=== PATIENT | female | born 1990 | race African-American/Black ===

== ENCOUNTER 2021-04-02 15:28 | Emergency (ER) | payer OTHER ==
[2021-04-02 15:59] VITALS: BP 132/83; PULSE 72; TEMP 97.3; BMI 23.3
[2021-04-02] MEDS ORDERED: diazePAM 5 MG TABLET PO ONE (16:19)
[2021-04-02] MEDS ORDERED: KETOROLAC TROMETHAMINE 60 MG/2 ML VIAL IM ONE (16:19)
[2021-04-02] MEDS ORDERED: KETOROLAC TROMETHAMINE 60 MG/2 ML VIAL ONE (16:23)
[2021-04-02] MEDS ORDERED: IBUPROFEN 400 MG TABLET (FP) PO ONE (16:32)
== END 2021-04-02 18:12 | disposition home or self-care (01) ==
LOC: JERFT 15:28 → JER 15:28 → JERFT 18:12
PROC: 3E0233Z Introduction of Anti-inflammatory into Muscle, Percutaneous Approach (ICD-10-PCS; principal; 2021-04-02)
DX: S16.1XXA Strain of muscle, fascia and tendon at neck level, initial encounter (principal); R51.9 Headache, unspecified
CPT/HCPCS: 70450-TC; 72125-TC; 99285-25

== ENCOUNTER 2021-10-30 09:27 | Emergency (ER) | payer OTHER ==
[2021-10-30 09:44] VITALS: BP 113/69; PULSE 79; TEMP 97.6; BMI 25.7
== END 2021-10-30 13:07 | disposition home or self-care (01) ==
LOC: JERFT 09:27
DX: S16.1XXA Strain of muscle, fascia and tendon at neck level, initial encounter (principal); S39.012A Strain of muscle, fascia and tendon of lower back, initial encounter; V49.50XA Passenger injured in collision with unspecified motor vehicles in traffic accident, initial encounter
CPT/HCPCS: 99283-25